=== PATIENT | male | born 1995 | race Caucasian/White ===

== ENCOUNTER 2016-06-15 12:53 | Emergency (ER) | payer BC, OTHER ==
[2016-06-15 12:56] VITALS: BP 107/66; BMI 24.5
--- NOTE | 2016-06-15 13:09 | DR.GENAD ---
HPI - PCP Primary Care Physician: NANCY - Complaint/Symptoms Chief Complaint Doctors Comments: Patient admits to palying volleyball four days ago, twisted his left ankle. Ankle was swollen but was ambulatory, today twisted ankle again. The area is ecchymotic laterally and edematous Chief Complaint:: PT C/O RIGHT FOOT PAIN. PT INJURED HIS ANKLE THIS PAST FRIDAY AND REINJURED IT AGAIN TODAY. - Source History Provided: Patient - Mode of Arrival Mode of Arrival: Ambulatory - Timing Onset of Chief Complaint: 06/12/16 PMH - PMH Past Medical History: No Past Surgical History: No - Family History History of Family Medical Conditions: No - Social History Does any household member use tobacco: No Alcohol Use: None Do you use any recreational Drugs:: No Lives With: Family Lives Where: Home - infectious screening In the last 2 months have you had wt loss of >10#?: NO Have you had fever, night sweats or hemotysis?: No Have you traveled outside the country in the last 6 months?: No Isolation: Standard ROS - Review of Systems Constitutional: No Symptoms Reported Eyes: No Symptoms Reported ENTM: No Symptoms Reported Respiratoy: No Symptoms Reported Cardiovascular: No Symptoms Reported Gastrointestinal/Abdominal: No Symptoms Reported Genitourinary: No Symptoms Reported Neurological: No Symptoms Reported Musculoskeletal: Ankle (left injured) Integumentary: Change in Color (left lateral foot) Hematologic/Lymphatic: No Symptoms Reported Endocrine: No Symptoms Reported Psychiatric: No Symptoms Reported All Other Systems: Reviewed and Negative PE - Vital Signs Vitals: Temperature 98.1 F Pulse Rate 66 Respiratory Rate 20 Blood Pressure 107/66 O2 Sat by Pulse Oximetry 99 - General Limitations: No Limitations General Appearance: Alert, In No Apparent Distress - Head Head Exam: Normal Inspection, Atraumatic - Eyes Eye exam: Normal Appearance, PERRL, EOMI - ENT ENT Exam: Normal Exam External Ear Exam: Normal External Inspection TM/Canal Exam: Bilateral Normal Nose Exam: Normal Nose Exam Mouth Exam: Normal Inspection Throat Exam: Normal Inspection - Neck Neck Exam: Normal Inspection - Chest Chest Inspection: Normal Inspection, Symmetric Chest Wall Rise - Respiratory Respiratory Exam: Normal Lung Sounds Bilat Respiratory Exam: Bilateral Clear to Auscultation - Cardiovascular Cardiovascular Exam: Regular Rate, Normal Rhythm - Abdominal Exam Abdominal Exam: Normal Inspection Abdominal Tenderness: negative: RUQ, RLQ, LUQ, LLQ, Epigastrium, Suprapubic, Diffuse, Mild, Moderate, Severe, Other - Extremities Extremities Exam: Normal Inspection - Back Back Exam: Normal Inspection - Neurologic Neurological Exam: Alert, Oriented X3, CN II-XII Intact - Psychiatric Psychiatric Exam: Normal Affect, Normal Mood - Skin Skin Exam: Warm, Dry, Intact, Other (left ankle swollen with ecchymosis) Course - Treatment Treatment: Ankle stirrup left ankle ROR - XRAY XRAY Interpreted by: Self (No fracture noted, left ankle sprain) - Diagnosis Discharge Problem: Ankle sprain Qualifiers: Encounter type: initial encounter Involved ligament of ankle: tibiofibular ligament Laterality: left Qualified Code(s): S93.432A - Sprain of tibiofibular ligament of left ankle, initial encounter - Discharge Plan Condition: Stable - Follow ups/Referrals Follow ups/Referrals: JAY BRENNAN [Primary Care Provider] - 3 days - Instructions
--- NOTE | 2016-06-15 14:49 | RAD ---
HISTORY: Twisted left ankle Study: Three views left ankle Comparison: None Findings: Normal alignment. No acute fracture or dislocation. There is soft tissue swelling seen overlying med ial and lateral malleolus. IMPRESSION: 1. Soft tissue swelling around the ankle joint. No acute fracture identified. Reported By:
== END 2016-06-15 14:25 | disposition home or self-care (01) ==
LOC: ER 12:58
PROC: 2W3LX1Z Immobilization of Right Lower Extremity using Splint (ICD-10-PCS; principal; 2016-06-15)
DX: S93.432A Sprain of tibiofibular ligament of left ankle, initial encounter (principal); M79.89 Other specified soft tissue disorders; Y33.XXXA Other specified events, undetermined intent, initial encounter; Y92.89 Other specified places as the place of occurrence of the external cause
CPT/HCPCS: 29515; 73610; 99282